=== PATIENT | female | born 1995 | race Hispanic/Latino ===

== ENCOUNTER 2018-12-16 10:28 | Emergency (ER) | payer MEDICAID, OTHER ==
[2018-12-16 11:04] LABS: BASOPHILS % (AUTO) 0.5 % (0.0-5.0); EOSINOPHILS % (AUTO) 1.4 % (0.0-8.0); HEMATOCRIT 42.5 % (36-48); LYMPHOCYTES % (AUTO) 19.7 % (21.0-51.0); MONOCYTES % (AUTO) 6.4 % (3.0-13.0); PLATELET COUNT (AUTO) 214 K/uL (130-400); RED BLOOD CELL COUNT(AUTO) 5.18 MIL/uL (4.00-5.50); RED CELL DISTRIBUTION WIDTH 14.1 % (11.0-15.5); WHITE BLOOD COUNT (AUTO) 10.8 K/uL (4.8-10.8)
== END 2018-12-16 12:14 | disposition home or self-care (01) ==
LOC: EDH 10:28
DX: N94.6 Dysmenorrhea, unspecified (principal); Z98.890 Other specified postprocedural states
CPT/HCPCS: 36415; 84702; 85025; 86900; 86901